=== PATIENT | male | born 1980 | race Caucasian/White ===

== ENCOUNTER 2019-12-26 15:06 | Emergency (ER) | payer MEDICAID, OTHER ==
[~2019-12-26] VITALS: Ht 175.3 cm; Wt 86.2 kg
[2019-12-26 15:30] VITALS: BP_SYST 142
--- NOTE | 2019-12-26 16:53 | NUR ---
Patient to ER chair for evaluation. Side rails up. Report given to AIDA Grullon.
--- NOTE | 2019-12-26 17:00 | NUR ---
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 Fell down the stairs at home on Wednesday and wishes to be checked out. Pt rates pain 6/10
--- NOTE | 2019-12-26 17:10 | NUR ---
ER at bedside examining patient.
--- NOTE | 2019-12-26 17:20 | NUR ---
Patient given written and verbal discharge instructions and verbalizes understanding. ER MD discussed with patient the results and treatment provided. Patient in stable condition. ID arm band removed. Rx of [place] given. Patient educated on pain management and to follow up with PMD. Pain Scale 3/10 tolerable for pt. Opportunity for questions provided and answered. Medication side effect fact sheet provided.
== END 2019-12-26 17:18 | disposition home or self-care (01) ==
LOC: SED 15:06
DX: S20.212A Contusion of left front wall of thorax, initial encounter (principal); W18.39XA Other fall on same level, initial encounter; Y93.89 Activity, other specified; Y92.89 Other specified places as the place of occurrence of the external cause; Y99.8 Other external cause status
CPT/HCPCS: 71046-TC; 99283

== ENCOUNTER 2020-08-07 08:41 | Emergency (ER) | payer SELFPAY ==
[~2020-08-07] VITALS: Ht 175.3 cm; Wt 86.2 kg
[2020-08-07 08:41] VITALS: BP_SYST 156
[2020-08-07] MEDS ORDERED: NAPR-1172 PO (09:07)
[2020-08-07 09:18] VITALS: BP_SYST 149
== END 2020-08-07 09:18 | disposition home or self-care (01) ==
LOC: SED 08:41
DX: S20.212A Contusion of left front wall of thorax, initial encounter (principal); S00.03XA Contusion of scalp, initial encounter; Y08.89XA Assault by other specified means, initial encounter; Y93.89 Activity, other specified; Y92.89 Other specified places as the place of occurrence of the external cause; Y99.8 Other external cause status
CPT/HCPCS: 99282

== ENCOUNTER 2021-02-09 08:09 | Emergency (ER) | payer OTHER ==
[~2021-02-09] VITALS: Ht 177.8 cm; Wt 86.2 kg
[~2021-02-09 08:09] MED LIST: NAPR-1172 PO
[2021-02-09 08:16] VITALS: BP_SYST 154
--- NOTE | 2021-02-09 08:16 | NUR ---
Patient to ER bed H1 to gown for evaluation. Side rails up.
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
--- NOTE | 2021-02-09 08:35 | NUR ---
ER DR. AMES AT THE BEDSIDE EXAMINING PT
--- NOTE | 2021-02-09 08:57 | NUR ---
Patient given written and verbal discharge instructions and verbalizes understanding. ER MD discussed with patient the results and treatment provided. Patient in stable condition. ID arm band removed. NO Rx given. Patient educated on pain management and to follow up with PMD. Pain Scale 0/10. Opportunity for questions provided and answered. Medication side effect fact sheet provided.
== END 2021-02-09 08:55 | disposition home or self-care (01) ==
LOC: SED 08:09
DX: T24.201A Burn of second degree of unspecified site of right lower limb, except ankle and foot, initial encounter (principal); X16.XXXA Contact with hot heating appliances, radiators and pipes, initial encounter; Y93.89 Activity, other specified; Y92.89 Other specified places as the place of occurrence of the external cause; Y99.8 Other external cause status
CPT/HCPCS: 99281; 99282

== ENCOUNTER 2023-04-25 09:01 | Emergency (ER) | payer OTHER ==
[~2023-04-25] VITALS: Ht 162.6 cm; Wt 83.9 kg
[2023-04-25 09:06] VITALS: BP_SYST 125; PULSE 90; RESP 18; TEMP 98.3; O2SAT 98
[2023-04-25 10:25] VITALS: BP_SYST 115; PULSE 91; RESP 16; TEMP 98.2; O2SAT 96
[2023-04-25] MEDS ORDERED: BACITRACIN 1 GM OINT TP ONE (10:28)
== END 2023-04-25 10:00 | disposition home or self-care (01) ==
LOC: SED 09:01
DX: S01.01XA Laceration without foreign body of scalp, initial encounter (principal); Z79.899 Other long term (current) drug therapy; Y04.0XXA Assault by unarmed brawl or fight, initial encounter; Y93.89 Activity, other specified; Y92.89 Other specified places as the place of occurrence of the external cause; Y99.8 Other external cause status
CPT/HCPCS: 70450-TC; 72125-TC; 76376; 99284

== ENCOUNTER 2023-05-03 16:17 | Emergency (ER) | payer OTHER ==
[~2023-05-03] VITALS: Ht 172.7 cm; Wt 83.9 kg
[2023-05-03 16:17] VITALS: BP_SYST 128; PULSE 59; RESP 17; TEMP 97.8; O2SAT 100
== END 2023-05-03 16:53 | disposition home or self-care (01) ==
LOC: SED 16:17
DX: Z48.02 Encounter for removal of sutures (principal); Z79.899 Other long term (current) drug therapy
CPT/HCPCS: 99281